=== PATIENT | female | born 1940 | race Caucasian/White ===

== ENCOUNTER → 2016-05-02 | Outpatient (CLI) | payer OTHER | LOC: BHFA 11:00 | PROVIDERS: ATTEND Internal Medicine Cardiovascular Disease | DX: R07.9 Chest pain, unspecified (principal) ==

== ENCOUNTER 2017-05-07 10:31 | Observation (INO) | payer OTHER ==
[2017-05-07 10:58] LABS: PLATELET COUNT 321 10^3/uL (150-400)
--- NOTE | 2017-05-07 11:03 | CPEKG ---
Heart Rate: 78 RR Interval: 769 P-R Interval: 192 QRSD Interval: 90 QT Interval: 396 QTC Interval: 452 P [place]: 30 QRS [place]: -48 T Wave [place]: 16 EKG Severity - ABNORMAL ECG - EKG Impression: SINUS RHYTHM EKG Impression: LEFT ANTERIOR FASCICULAR BLOCK EKG Impression: Poor anterior R-wave progression Electronically Signed By: Russel Monreal 07-May-2017 14:37:09
[2017-05-07] MEDS ORDERED: KETOROLAC 30 MG/1 ML SDV IVP ONE (11:14)
[2017-05-07] MEDS ORDERED: METOCLOPRAMIDE 10 MG/2 ML VIAL IVP ONE (11:14)
[2017-05-07] MEDS ORDERED: NS 1,000 ML IV ONE (11:14)
[2017-05-07] MEDS ORDERED: ACETAMINOPHEN 500 MG TAB PO ONE (11:54)
[2017-05-07] MEDS ORDERED: ACETAMINOPHEN 325 MG TAB PO ONE (12:02)
[2017-05-07] MEDS ORDERED: IOPAMIDOL (ISOVUE 370) 100 ML BTL IV ONE (12:29)
--- NOTE | 2017-05-07 14:15 | EDPHY ---
H & P Stated Complaint: 08 aura/ WHITE then confusion - currently has WHITE/Confusion and arm pain Time Seen by Provider: 05/07/17 10:39 HPI/ROS: This patient reports onset of bifrontal headache achy and sharp in nature 7/10 intensity at 8:00 a.m. This morning associated with "confusion." When asked to describe this specifically, her describes word-finding difficulty and garbled words. She also has moderate nausea but no vomiting. He gave her a single Advil migraine [id number] medication at 8:00 a.m. But the patient had no significant improvement in symptoms when she was brought here by private vehicle for further evaluation. They report that in mid February of last year the patient had a similar headache that felt reminiscent of migraine she had 30 years prior and was seen at [facility] with a normal CT head. At that time she also had expressive aphasia. Her symptoms improved with treatment and she was discharged home. It sounds like she had no further follow -up after that episode. Patient did notice any other associated neuro symptoms except"fuzzy vision ". The fuzzy vision persists and her word-finding difficulty persists. She did notice any focal weakness or numbness except for bilateral symmetric hand paresthesias. The patient reports that she felt well prior to 8:00 a.m. this morning. ROS: Constitutional: No fevers or chills. No generalized fatigue. Neuro: The patient describes word-finding difficulty and bilateral finger tingling this morning. She denies any focal weakness. No shukri numbness. The family noticed no facial droop. HEENT: No recent URI symptoms. No sore throat. No ear pain. Pulmonary: No cough or shortness of breath. Cardiovascular: No chest pain. No heart palpitations. GI: Nausea but no vomiting. No abdominal pain : No symptoms Integumentary: No skin rash Endocrine: No complaints Musculoskeletal: No recent head injuries or other trauma. Complete review of symptoms is otherwise negative. Source: Patient, Family (Patient's and granddaughter also provide history) Exam Limitations: Clinical condition (Patient with some word-finding difficulty in terms of history.) - Personal History Current Tetanus Diphtheria and Acellular Pertussis (TDAP): Yes - Medical/Surgical History Other PMH: Thyroid issues/ ortho - Social History Smoking Status: Never smoked Alcohol Use: None Drug Use: None - Physical Exam Exam: Physical exam: Vital signs are normal General: Patient is in no acute distress. HEENT: Is no external evidence of trauma on exam. She has no cranial tenderness to palpation. Nose atraumatic. Ears: Clear bilaterally with no hemotympanum. Oropharynx: No dental trauma or malocclusion. No intraoral lacerations. Eyes: Pupils are equal and reactive to light. Extraocular motions are intact. Optic fundi: Clear with no papilledema or hemorrhage. Neck: No meningismus. Her neck is supple. Lungs: Clear to auscultation bilaterally Cardiac: Regular rate and rhythm no murmur gallop or rub. Abdomen: Soft nontender no organomegaly Back: Nontender Extremities: Atraumatic Neuro: Stroke scale of 1 for mild expressive aphasia/word-finding difficulties. Otherwise neuro intact with no focal deficits. GCS of 15. Cranial nerves II through XII intact. Cerebellar exam is normal as judged by symmetric rapid hand movements bilaterally. No pronator drift. No sensory or motor deficits are appreciated besides the subtle expressive aphasia. Initial differential diagnosis: Migraine headache with neuro symptoms, stroke, TIA, intracranial lesion, vasculitis, doubt infectious etiology, metabolic disarray Constitutional: Initial Vital Signs Temperature (C) 36.6 C 05/07/17 10:39 Heart Rate 88 05/07/17 10:39 Respiratory Rate 20 05/07/17 10:39 Blood Pressure 150/90 H 05/07/17 10:39 O2 Sat (%) 97 05/07/17 10:39 O2 Delivery Mode Room Air O2 (L/minute) 2 Allergies/Adverse Reactions: Penicillins Allergy (Intermediate, Verified 01/31/13 22:07) Home Medications: Medication Instructions Recorded LORazepam [Ativan 0.5 mg (RX)] 0.25 mg 01/31/13 Levothyroxine [Synthroid 100 mcg 50 mcg PO DAILY06 01/31/13 (RX)] Medical Decision Making - Diagnostics EKG Interpretation: 12 lead EKG performed shortly after arrival at 11:01 a.m. Sinus rhythm at 78 Intervals: P R of 192, QRS of 90, QTC of 452 [place]: P of 30, QRS of -40, T of 16 ST segments: Normal throughout Overall assessment sinus rhythm left anterior fascicular block poor anterior R- wave progression. No prior for comparison Imaging Results: Imaging Impressions Head CT 05/07/17 10:59 Impression: 1. Mild atrophy. 2. No acute hemorrhage, hydrocephalus, or mass effect. 3. Cerebrovascular atherosclerosis. 4. No definite acute infarct. 5. Mild microvascular ischemic gliosis. 6. Consider MRI of the brain, if there is continued clinical concern. Findings and recommendations discussed with Emergency Department physician, RUSSEL ZARATE at 11:14 hour, 05/07/2017. Final report concurs with initial preliminary interpretation. Head CTA 05/07/17 12:15 Impression: 1. Mild atherosclerotic disease right carotid bulb. 2. No evidence of carotid flow-limiting stenosis, occlusion, or dissection. 3. Very small codominant bilateral vertebral arteries with a small vertebrobasilar system but no evidence of occlusion. Measurement of carotid stenosis is based on the residual internal carotid diameter with [place] Symptomatic Carotid Endarterectomy Trial (NASCET) based stenosis levels. CT Angiogram of the Brain Clinical Indications: Headache with aphasia. Question stroke or bleed. Technique: CT angiogram of the brain and neck was performed with the uneventful intravenous administration of 75 mL Isovue-370 contrast. Multiplanar reconstructions including 3D reconstructions performed and evaluated on [employer]a workstation in order to better evaluate the [place] vessels. Images were manipulated by the radiologist at the computer workstation. Dose reduction techniques were utilized. Findings: Major vessels of the [place] are adequately displayed, demonstrating no evidence of aneurysm, vascular malformation, flow-limiting stenosis, or occlusion. Bilateral cavernous internal carotid arteries demonstrates no evidence of flow-limiting stenosis, aneurysm, occlusion, or dissection. Superior sagittal sinus, transverse sinuses, and major veins demonstrate no evidence of intraluminal thrombi. Very small vertebrobasilar system with lateral posterior communicating artery origins supplying the majority of bilateral posterior cerebral arteries. No evidence of flow-limiting stenosis of the [place] vessels or definite vascular malformation. Impression: 1. No flow-limiting stenosis or intraluminal thrombi in the [place] vessels. 2. 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 Findings and recommendations discussed with Emergency Department physician, Russel Zarate, at 1300 hours, 05/07/2017. Final report concurs with initial preliminary interpretation. Neck CTA 05/07/17 12:15 Impression: 1. Mild atherosclerotic disease right carotid bulb. 2. No evidence of carotid flow-limiting stenosis, occlusion, or dissection. 3. Very small codominant bilateral vertebral arteries with a small vertebrobasilar system but no evidence of occlusion. Measurement of carotid stenosis is based on the residual internal carotid diameter with [place] Symptomatic Carotid Endarterectomy Trial (NASCET) based stenosis levels. CT Angiogram of the Brain Clinical Indications: Headache with aphasia. Question stroke or bleed. Technique: CT angiogram of the brain and neck was performed with the uneventful intravenous administration of 75 mL Isovue-370 contrast. Multiplanar reconstructions including 3D reconstructions performed and evaluated on [employer] workstation in order to better evaluate the [place] vessels. Images were manipulated by the radiologist at the computer workstation. Dose reduction techniques were utilized. Findings: Major vessels of the [place] are adequately displayed, demonstrating no evidence of aneurysm, vascular malformation, flow-limiting stenosis, or occlusion. Bilateral cavernous internal carotid arteries demonstrates no evidence of flow-limiting stenosis, aneurysm, occlusion, or dissection. Superior sagittal sinus, transverse sinuses, and major veins demonstrate no evidence of intraluminal thrombi. Very small vertebrobasilar system with lateral posterior communicating artery origins supplying the majority of bilateral posterior cerebral arteries. No evidence of flow-limiting stenosis of the [place] vessels or definite vascular malformation. Impression: 1. No flow-limiting stenosis or intraluminal thrombi in the [place] vessels. 2. 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 Findings and recommendations discussed with Emergency Department physician, Russel Zarate, at 1300 hours, 05/07/2017. Final report concurs with initial preliminary interpretation. Imaging: Discussed imaging studies w/ business services analyst Radiologist ED Course/Re-evaluation: IV, lab sent Discussed initial CT read with radiologist-negative for bleed intracranial lesion or other significant abnormalities. Patient is then treated for migraine with IV Reglan, 10 mg Benadryl 25 mg, IV Toradol and 1 L normal saline bolus. Her nausea resolved. Her headache went from 7 to 5/10. However, the patient continued to have waxing and waning mild expressive aphasia manifest as word- finding difficulty. She is given Tylenol in addition to her previous medications for ongoing headache. On repeat neuro exam after her CT she still has no other neuro deficits. I consulted Dr. Guerrier-neurology on-call who agrees with plan for CT angio head and neck which performed and also read as no significant acute abnormality but Dr. Roman. Labs: Normal CBC and metabolic panel. Normal ESR We attempted to obtain a MRI brain here at [facility] without success. Spoke with Dr. Olson in consult again regarding this patient with plan to transfer her to [facility] Emergency Department for MRI of the brain for further evaluation to rule out stroke. I queried the possibility of a dose of aspirin but Dr. Guerrier requests holding off at this time in favor of reviewing MRI 1st. I spoke with Dr. Fulton accepts the patient for transfer to the emergency department The family agrees to plan for transfer to [facility] ED though her ones that she has significant claustrophobia will likely require sedation to achieve an MRI. I suggested transfer by EMS but her declines EMS transport understanding the risk of driving her private vehicle. He accepts this risk: Dry for the patient to [facility] for further evaluation. Discussion: Patient with neuro symptoms concerning for stroke or TIA versus atypical migraine with persistent neuro symptoms warranting further workup to include MRI brain. - Data Points Laboratory Results: Laboratory Results 05/07/17 10:55 05/07/17 10:55 05/07/17 05/07/17 05/07/17 13:00 10:57 10:56 WBC RBC Hgb POC Hgb 16.0 gm/dL gm/dL (12.6-16.3) Hct POC Hct 47 % % (38-47) MCV MCH MCHC RDW Plt Count MPV Neut % (Auto) Lymph % (Auto) [place] % (Auto) Eos % (Auto) Baso % (Auto) Nucleat RBC Rel Count Absolute Neuts (auto) Absolute Lymphs (auto) Absolute Monos (auto) Absolute Eos (auto) Absolute Basos (auto) Absolute Nucleated RBC Immature Gran % Immature Gran # POC Sodium 141 mEq/L mEq/L (135-145) Sodium POC Potassium 4.2 mEq/L mEq/L (3.3-5.0) Potassium POC Chloride 109 mEq/L mEq/L (97-110) Chloride Carbon Dioxide Anion Gap POC BUN 23 mg/dL mg/dL (7-23) BUN Creatinine POC Creatinine 0.9 mg/dL mg/dL (0.6-1.0) Estimated GFR Glucose POC Glucose 106 mg/dL H mg/dL (70-100) Calcium Total Bilirubin AST ALT Alkaline Phosphatase C-Reactive Protein < 5.0 mg/L mg/L (<10.0) Total Protein Albumin TSH Urine Color YELLOW Urine Appearance HAZY Urine pH 7.0 (5.0-7.5) Ur Specific [place] 1.015 (1.002-1.030) Urine Protein NEGATIVE (NEGATIVE) Urine Ketones TRACE H (NEGATIVE) Urine Blood NEGATIVE (NEGATIVE) Urine Nitrate NEGATIVE (NEGATIVE) Urine Bilirubin NEGATIVE (NEGATIVE) Urine Urobilinogen 0.2 EU EU (0.2-1.0) Ur Leukocyte Esterase NEGATIVE (NEGATIVE) Urine Glucose NEGATIVE (NEGATIVE) 05/07/17 05/07/17 10:55 10:55 WBC 6.71 10^3/uL 10^3/uL (3.80-9.50) RBC 5.21 10^6/uL 10^6/uL (4.18-5.33) Hgb 16.2 g/dL g/dL (12.6-16.3) POC Hgb Hct 47.5 % H % (38.0-47.0) POC Hct MCV 91.2 fL fL (81.5-99.8) MCH 31.1 pg pg (27.9-34.1) MCHC 34.1 g/dL g/dL (32.4-36.7) RDW 13.2 % % (11.5-15.2) Plt Count 321 10^3/uL 10^3/uL (150-400) MPV 9.2 fL fL (8.7-11.7) Neut % (Auto) 69.0 % % (39.3-74.2) Lymph % (Auto) 20.9 % % (15.0-45.0) [place] % (Auto) 7.9 % % (4.5-13.0) Eos % (Auto) 1.2 % % (0.6-7.6) Baso % (Auto) 0.6 % % (0.3-1.7) Nucleat RBC Rel Count 0.0 % % (0.0-0.2) Absolute Neuts (auto) 4.63 10^3/uL 10^3/uL (1.70-6.50) Absolute Lymphs (auto) 1.40 10^3/uL 10^3/uL (1.00-3.00) Absolute Monos (auto) 0.53 10^3/uL 10^3/uL (0.30-0.80) Absolute Eos (auto) 0.08 10^3/uL 10^3/uL (0.03-0.40) Absolute Basos (auto) 0.04 10^3/uL 10^3/uL (0.02-0.10) Absolute Nucleated RBC 0.00 10^3/uL 10^3/uL (0-0.01) Immature Gran % 0.4 % % (0.0-1.1) Immature Gran # 0.03 10^3/uL 10^3/uL (0.00-0.10) POC Sodium Sodium 143 mEq/L mEq/L (135-145) POC Potassium Potassium 4.0 mEq/L mEq/L (3.5-5.2) POC Chloride Chloride 104 mEq/L mEq/L (97-110) Carbon Dioxide 21 mEq/l L mEq/l (22-31) Anion Gap 18 mEq/L H mEq/L (8-16) POC BUN BUN 19 mg/dL mg/dL (7-23) Creatinine 0.9 mg/dL mg/dL (0.6-1.0) POC Creatinine Estimated GFR > 60 Glucose 102 mg/dL H mg/dL (70-100) POC Glucose Calcium 10.2 mg/dL mg/dL (8.5-10.4) Total Bilirubin 1.0 mg/dL mg/dL (0.1-1.4) AST 24 IU/L IU/L (14-46) ALT 40 IU/L IU/L (9-52) Alkaline Phosphatase 92 IU/L IU/L (38-126) C-Reactive Protein Total Protein 8.5 g/dL H g/dL (6.3-8.2) Albumin 4.4 g/dL g/dL (3.5-5.0) TSH 0.860 uIU/mL uIU/mL (0.465-4.680) Urine Color Urine Appearance Urine pH Ur Specific [place] Urine Protein Urine Ketones Urine Blood Urine Nitrate Urine Bilirubin Urine Urobilinogen Ur Leukocyte Esterase Urine Glucose Medications Given: Discontinued Medications Acetaminophen (Tylenol) 1,000 mg PO EDNOW ONE Stop: 05/07/17 11:55 Last Admin: 05/07/17 12:02 Dose: Not Given Acetaminophen (Tylenol) 975 mg PO EDNOW ONE Stop: 05/07/17 12:03 Last Admin: 05/07/17 12:10 Dose: 975 mg Diphenhydramine HCl (Benadryl Injection) 25 mg IVP EDNOW ONE Stop: 05/07/17 11:15 Last Admin: 05/07/17 11:32 Dose: 25 mg Sodium Chloride (Ns) 1,000 mls @ 0 mls/hr IV ONCE ONE; Wide Open PRN Reason: Protocol Stop: 05/07/17 11:15 Last Admin: 05/07/17 11:31 Dose: 1,000 mls Ketorolac Tromethamine (Toradol) 15 mg IVP EDNOW ONE Stop: 05/07/17 11:15 Last Admin: 05/07/17 11:32 Dose: 15 mg Metoclopramide HCl (Reglan Injection) 10 mg IVP EDNOW ONE Stop: 05/07/17 11:15 Last Admin: 05/07/17 11:32 Dose: 10 mg Point of Care Test Results: 05/07/17 10:56 POC Sodium 141 POC Potassium 4.2 POC Chloride 109 POC BUN 23 POC Creatinine 0.9 POC Glucose 106 H Departure - Departure Disposition: [facility] Clinical Impression: Expressive aphasia Acute headache Qualifiers: Headache type: unspecified Intractability: intractable Qualified Code(s): R51 - Headache Condition: Fair
--- NOTE | 2017-05-07 15:33 | EDPHY ---
H & P Stated Complaint: 08 aura/ WHITE then confusion - currently has WHITE/Confusion and arm pain Time Seen by Provider: 05/07/17 10:39 HPI/ROS: CHIEF COMPLAINT: Headache, aphasia HISTORY OF PRESENT ILLNESS: Patient is a 76-year-old female who has a history of migraines as a teenager but did not have 1 for many decades. She then in February had what she described as a migraine that caused a headache and some flashes of lights which is typical for her previous aura as well as some mild aphasia. She was seen at [facility] and discharged after 5 hr or headache resolved. She was told that she was having a typical migraines. Today her symptoms returned and she developed some flashing lights in her vision and then a diffuse headache and some aphasia according to her and occasionally garbled sentences. She was taken to the [facility] ER and had a CT as well as CT angio of her head and neck that were negative. She was given Reglan Benadryl Tylenol with moderate improvement of her headache. She has not had a fever. She denies trauma. They consulted Neurology who recommended she come here for an MRI to evaluate for atypical migraine. Her symptoms began at 8 o'clock this morning. She did initially have some tingling in both hands that has now resolved. No weakness in her extremities. REVIEW OF SYSTEMS: Constitutional: denies: chills, fever, recent illness, recent injury EENTM: denies: blurred vision, double vision, nose congestion Respiratory: denies: cough, shortness of breath Cardiac: denies: chest pain, irregular heart rate, lightheadedness, palpitations Gastrointestinal/Abdominal: denies: abdominal pain, diarrhea, nausea, vomiting, blood streaked stools Genitourinary: denies: dysuria, frequency, hematuria, pain Musculoskeletal: denies: joint pain, muscle pain Skin: denies: lesions, rash, jaundice, bruising Neurological: See HPI Hematologic/Lymphatic: denies: blood clots, easy bleeding, easy bruising Immunologic/allergic: denies: HIV/AIDS, transplant EXAM: GENERAL: Well-appearing, well-nourished and in no acute distress. HEAD: Atraumatic, normocephalic. EYES: Pupils equal round and reactive to light, extraocular movements intact, sclera anicteric, conjunctiva are normal. ENT: TMs normal, nares patent, oropharynx clear without exudates. Moist mucous membranes. NECK: Normal range of motion, supple without lymphadenopathy or JVD. LUNGS: Breath sounds clear to auscultation bilaterally and equal. No wheezes rales or rhonchi. HEART: Regular rate and rhythm without murmurs, rubs or gallops. ABDOMEN: Soft, nontender, normoactive bowel sounds. No guarding, no rebound. No masses appreciated. BACK: No CVA tenderness, no spinal tenderness, step-offs or deformities EXTREMITIES: Normal range of motion, no pitting or edema. No clubbing or cyanosis. NEUROLOGICAL: Cranial nerves II through XII grossly intact. Some mild difficulty with word-finding however seems to speak rather normally according to her it is not her baseline., normal gait. 5/5 strength, normal movement in all extremities, normal sensation NIH stroke score 1 for mild aphasia. No slurred speech. PSYCH: Normal mood, normal affect. SKIN: Warm, dry, normal turgor, no visible rashes or lesions. Source: Patient Exam Limitations: No limitations - Personal History Current Tetanus Diphtheria and Acellular Pertussis (TDAP): Yes - Medical/Surgical History Hx Asthma: No Hx Chronic Respiratory Disease: No Hx Diabetes: No Hx Cardiac Disease: No Hx Renal Disease: No Hx Cirrhosis: No Other PMH: Thyroid issues/ ortho - Family History Significant Family History: No pertinent family hx - Social History Smoking Status: Never smoked Alcohol Use: Sober Drug Use: None Constitutional: Initial Vital Signs Temperature (C) 36.6 C 05/07/17 10:39 Heart Rate 88 05/07/17 10:39 Respiratory Rate 20 05/07/17 10:39 Blood Pressure 150/90 H 05/07/17 10:39 O2 Sat (%) 97 05/07/17 10:39 O2 Delivery Mode Room Air O2 (L/minute) 2 Allergies/Adverse Reactions: Penicillins Allergy (Intermediate, Verified 01/31/13 22:07) Home Medications: Medication Instructions Recorded Levothyroxine [Synthroid 100 mcg 100 mcg PO DAILY06 01/31/13 (RX)] Herbals/Supplements -Info Only 1 ea PO DAILY 05/07/17 Medical Decision Making - Diagnostics Imaging Results: Imaging Impressions Head CT 05/07/17 10:59 Impression: 1. Mild atrophy. 2. No acute hemorrhage, hydrocephalus, or mass effect. 3. Cerebrovascular atherosclerosis. 4. No definite acute infarct. 5. Mild microvascular ischemic gliosis. 6. Consider MRI of the brain, if there is continued clinical concern. Findings and recommendations discussed with Emergency Department physician, ANDREW ZARATE at 11:14 hour, 05/07/2017. Final report concurs with initial preliminary interpretation. Head CTA 05/07/17 12:15 Impression: 1. Mild atherosclerotic disease right carotid bulb. 2. No evidence of carotid flow-limiting stenosis, occlusion, or dissection. 3. Very small codominant bilateral vertebral arteries with a small vertebrobasilar system but no evidence of occlusion. Measurement of carotid stenosis is based on the residual internal carotid diameter with [place] Symptomatic Carotid Endarterectomy Trial (NASCET) based stenosis levels. CT Angiogram of the Brain Clinical Indications: Headache with aphasia. Question stroke or bleed. Technique: CT angiogram of the brain and neck was performed with the uneventful intravenous administration of 75 mL Isovue-370 contrast. Multiplanar reconstructions including 3D reconstructions performed and evaluated on [employer] workstation in order to better evaluate the [facility] [place] vessels. Images were manipulated by the radiologist at the computer workstation. Dose reduction techniques were utilized. Findings: Major vessels of the [facility] [place] are adequately displayed, demonstrating no evidence of aneurysm, vascular malformation, flow-limiting stenosis, or occlusion. Bilateral cavernous internal carotid arteries demonstrates no evidence of flow-limiting stenosis, aneurysm, occlusion, or dissection. Superior sagittal sinus, transverse sinuses, and major veins demonstrate no evidence of intraluminal thrombi. Very small vertebrobasilar system with lateral posterior communicating artery origins supplying the majority of bilateral posterior cerebral arteries. No evidence of flow-limiting stenosis of the [facility] [place] vessels or definite vascular malformation. Impression: 1. No flow-limiting stenosis or intraluminal thrombi in the [facility] [place] vessels. 2. 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 Findings and recommendations discussed with Emergency Department physician, Andrew Zarate, at 1300 hours, 05/07/2017. Final report concurs with initial preliminary interpretation. Neck CTA 05/07/17 12:15 Impression: 1. Mild atherosclerotic disease right carotid bulb. 2. No evidence of carotid flow-limiting stenosis, occlusion, or dissection. 3. Very small codominant bilateral vertebral arteries with a small vertebrobasilar system but no evidence of occlusion. Measurement of carotid stenosis is based on the residual internal carotid diameter with [place] Symptomatic Carotid Endarterectomy Trial (NASCET) based stenosis levels. CT Angiogram of the Brain Clinical Indications: Headache with aphasia. Question stroke or bleed. Technique: CT angiogram of the brain and neck was performed with the uneventful intravenous administration of 75 mL Isovue-370 contrast. Multiplanar reconstructions including 3D reconstructions performed and evaluated on [employer] workstation in order to better evaluate the [facility] [place] vessels. Images were manipulated by the radiologist at the computer workstation. Dose reduction techniques were utilized. Findings: Major vessels of the [facility] [place] [place] are adequately displayed, demonstrating no evidence of aneurysm, vascular malformation, flow-limiting stenosis, or occlusion. Bilateral cavernous internal carotid arteries demonstrates no evidence of flow-limiting stenosis, aneurysm, occlusion, or dissection. Superior sagittal sinus, transverse sinuses, and major veins demonstrate no evidence of intraluminal thrombi. Very small vertebrobasilar system with lateral posterior communicating artery origins supplying the majority of bilateral posterior cerebral arteries. No evidence of flow-limiting stenosis of the [facility] [place] vessels or definite vascular malformation. Impression: 1. No flow-limiting stenosis or intraluminal thrombi in the [facility] [place] [facility] [place] vessels. 2. 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 Findings and recommendations discussed with Emergency Department physician, Anrdew Zarate, at 1300 hours, 05/07/2017. Final report concurs with initial preliminary interpretation. Imaging: Discussed imaging studies w/ scallop cutter Radiologist ED Course/Re-evaluation: Discussed the case with Dr. Kee who will admit to the medical service for rule out CVA. Differential Diagnosis: Partial list of the Differential diagnosis considered include but were not limited to; CVA, migraine, and although unlikely based on the history and physical exam, I also considered aneurysm, hemorrhage, infection. - Data Points Laboratory Results: Laboratory Results 05/07/17 10:55 05/07/17 10:55 05/07/17 05/07/17 05/07/17 13:00 10:57 10:56 WBC RBC Hgb POC Hgb 16.0 gm/dL gm/dL (12.6-16.3) Hct POC Hct 47 % % (38-47) MCV MCH MCHC RDW Plt Count MPV Neut % (Auto) Lymph % (Auto) Howell % (Auto) Eos % (Auto) Baso % (Auto) Nucleat RBC Rel Count Absolute Neuts (auto) Absolute Lymphs (auto) Absolute Monos (auto) Absolute Eos (auto) Absolute Basos (auto) Absolute Nucleated RBC Immature Gran % Immature Gran # POC Sodium 141 mEq/L mEq/L (135-145) Sodium POC Potassium 4.2 mEq/L mEq/L (3.3-5.0) Potassium POC Chloride 109 mEq/L mEq/L (97-110) Chloride Carbon Dioxide Anion Gap POC BUN 23 mg/dL mg/dL (7-23) BUN Creatinine POC Creatinine 0.9 mg/dL mg/dL (0.6-1.0) Estimated GFR Glucose POC Glucose 106 mg/dL H mg/dL (70-100) Calcium Total Bilirubin AST ALT Alkaline Phosphatase C-Reactive Protein < 5.0 mg/L mg/L (<10.0) Total Protein Albumin TSH Urine Color YELLOW Urine Appearance HAZY Urine pH 7.0 (5.0-7.5) Ur Specific [place] 1.015 (1.002-1.030) Urine Protein NEGATIVE (NEGATIVE) Urine Ketones TRACE H (NEGATIVE) Urine Blood NEGATIVE (NEGATIVE) Urine Nitrate NEGATIVE (NEGATIVE) Urine Bilirubin NEGATIVE (NEGATIVE) Urine Urobilinogen 0.2 EU EU (0.2-1.0) Ur Leukocyte Esterase NEGATIVE (NEGATIVE) Urine Glucose NEGATIVE (NEGATIVE) 05/07/17 05/07/17 10:55 10:55 WBC 6.71 10^3/uL 10^3/uL (3.80-9.50) RBC 5.21 10^6/uL 10^6/uL (4.18-5.33) Hgb 16.2 g/dL g/dL (12.6-16.3) POC Hgb Hct 47.5 % H % (38.0-47.0) POC Hct MCV 91.2 fL fL (81.5-99.8) MCH 31.1 pg pg (27.9-34.1) MCHC 34.1 g/dL g/dL (32.4-36.7) RDW 13.2 % % (11.5-15.2) Plt Count 321 10^3/uL 10^3/uL (150-400) MPV 9.2 fL fL (8.7-11.7) Neut % (Auto) 69.0 % % (39.3-74.2) Lymph % (Auto) 20.9 % % (15.0-45.0) Howell % (Auto) 7.9 % % (4.5-13.0) Eos % (Auto) 1.2 % % (0.6-7.6) Baso % (Auto) 0.6 % % (0.3-1.7) Nucleat RBC Rel Count 0.0 % % (0.0-0.2) Absolute Neuts (auto) 4.63 10^3/uL 10^3/uL (1.70-6.50) Absolute Lymphs (auto) 1.40 10^3/uL 10^3/uL (1.00-3.00) Absolute Monos (auto) 0.53 10^3/uL 10^3/uL (0.30-0.80) Absolute Eos (auto) 0.08 10^3/uL 10^3/uL (0.03-0.40) Absolute Basos (auto) 0.04 10^3/uL 10^3/uL (0.02-0.10) Absolute Nucleated RBC 0.00 10^3/uL 10^3/uL (0-0.01) Immature Gran % 0.4 % % (0.0-1.1) Immature Gran # 0.03 10^3/uL 10^3/uL (0.00-0.10) POC Sodium Sodium 143 mEq/L mEq/L (135-145) POC Potassium Potassium 4.0 mEq/L mEq/L (3.5-5.2) POC Chloride Chloride 104 mEq/L mEq/L (97-110) Carbon Dioxide 21 mEq/l L mEq/l (22-31) Anion Gap 18 mEq/L H mEq/L (8-16) POC BUN BUN 19 mg/dL mg/dL (7-23) Creatinine 0.9 mg/dL mg/dL (0.6-1.0) POC Creatinine Estimated GFR > 60 Glucose 102 mg/dL H mg/dL (70-100) POC Glucose Calcium 10.2 mg/dL mg/dL (8.5-10.4) Total Bilirubin 1.0 mg/dL mg/dL (0.1-1.4) AST 24 IU/L IU/L (14-46) ALT 40 IU/L IU/L (9-52) Alkaline Phosphatase 92 IU/L IU/L (38-126) C-Reactive Protein Total Protein 8.5 g/dL H g/dL (6.3-8.2) Albumin 4.4 g/dL g/dL (3.5-5.0) TSH 0.860 uIU/mL uIU/mL (0.465-4.680) Urine Color Urine Appearance Urine pH Ur Specific [place] Urine Protein Urine Ketones Urine Blood Urine Nitrate Urine Bilirubin Urine Urobilinogen Ur Leukocyte Esterase Urine Glucose Medications Given: Acetaminophen (Tylenol) 650 mg PO Q4HRS PRN PRN Reason: Pain, Mild/Fever, Can Take PO Stop: 11/03/17 16:39 Last Admin: 05/07/17 21:01 Dose: 325 mg Discontinued Medications Acetaminophen (Tylenol) 1,000 mg PO EDNOW ONE Stop: 05/07/17 11:55 Last Admin: 05/07/17 12:02 Dose: Not Given Acetaminophen (Tylenol) 975 mg PO EDNOW ONE Stop: 05/07/17 12:03 Last Admin: 05/07/17 12:10 Dose: 975 mg Diphenhydramine HCl (Benadryl Injection) 25 mg IVP EDNOW ONE Stop: 05/07/17 11:15 Last Admin: 05/07/17 11:32 Dose: 25 mg Sodium Chloride (Ns) 1,000 mls @ 0 mls/hr IV ONCE ONE; Wide Open PRN Reason: Protocol Stop: 05/07/17 11:15 Last Admin: 05/07/17 11:31 Dose: 1,000 mls Ketorolac Tromethamine (Toradol) 15 mg IVP EDNOW ONE Stop: 05/07/17 11:15 Last Admin: 05/07/17 11:32 Dose: 15 mg Lorazepam (Ativan Injection) 1 mg IVP EDNOW ONE Stop: 05/07/17 15:35 Last Admin: 05/07/17 16:57 Dose: 1 mg Metoclopramide HCl (Reglan Injection) 10 mg IVP EDNOW ONE Stop: 05/07/17 11:15 Last Admin: 05/07/17 11:32 Dose: 10 mg Point of Care Test Results: 05/07/17 10:56 POC Sodium 141 POC Potassium 4.2 POC Chloride 109 POC BUN 23 POC Creatinine 0.9 POC Glucose 106 H Departure - Departure Disposition: [facility] Inpatient Acute Clinical Impression: Expressive aphasia Acute headache Qualifiers: Headache type: unspecified Intractability: intractable Qualified Code(s): R51 - Headache Condition: Fair
[2017-05-07] MEDS ORDERED: LORazepam 2 MG/ML INJ IVP ONE (15:34)
[2017-05-07] MEDS ORDERED: OXYCODONE/APAP 5/325 TAB PO PRN (16:40)
[2017-05-07] MEDS ORDERED: PROMETHAZINE HCL 25 MG/ML INJ IVP PRN (16:40)
[2017-05-07] MEDS ORDERED: ACETAMINOPHEN 325 MG TAB PO PRN (16:40)
[2017-05-07] MEDS ORDERED: NS 1,000 ML IV SCH (16:45)
[2017-05-07] MEDS ORDERED: ACET/CAFFEINE/BUTA FIORICET 1 EACH TAB PO PRN (17:32)
--- NOTE | 2017-05-07 18:11 | GHP ---
[f rep st] HISTORY AND PHYSICAL DATE OF ADMISSION: 05/07/2017 CHIEF COMPLAINT: Headache with bilateral arm numbness and speech changes. HISTORY OF PRESENT ILLNESS: The patient is a pleasant 76-year-old female with a past medical history of migraine headaches dating back to her teenage years, but relatively mild in her adult life. She presented to [facility] this morning after developing a headache. She states that she woke up with aura-like symptoms with lights in her field of vision, which she has had before with gabby or migraine headaches. She also woke with bilateral hand and arm numbness. Her also adds th at her speech was garbled, saying she was able to produce speech, but the words in making a sentence were not in the correct order. He did not notice any facial asymmetry or weakness of her extremities . Her last known normal time would have been the evening prior before going to bed. She had a CT scan of her head, which showed mild atrophy but no hemorrhage, hydrocephalus or mass eff ect. There was no definite acute infarct seen. She also had a CTA of the head and the neck. The CT A of the head showed mild atherosclerotic disease at the right carotid bulb, but no flow-limiting molina nosis, occlusion or dissection. She was referred then to the [facility] for additional investigation and to perform an MRI, which has been ordered and she is getting at t he time of this dictation. PAST MEDICAL HISTORY: Hypothyroidism. PAST SURGICAL HISTORY: 1. Bilateral knee replacements. 2. Hysterectomy. MEDICATIONS: Levothyroxine 100 mcg daily. ALLERGIES: Penicillin. FAMILY HISTORY: Mother at advanced age from complications from pneumonia. Her father from a stroke, which sounds like it was a complication after hip replacement surgery, also at an adva nced age in his late 80s. SOCIAL HISTORY: The patient is nonsmoker. She does not drink alcohol. She does not do any illicit or illegal drugs. She is currently . She has 2 children. She has recently retired. She use d to work at a [employer]. Her power of district attorney would be her . CODE STATUS: Reviewed, and she is a full code status. REVIEW OF SYSTEMS: CONSTITUTIONAL: No complaints of any fevers or chills. ENT: No recent upper re spiratory illnesses. CARDIOVASCULAR: No complaints of any chest pains, palpitations, or syncopal ep isodes. RESPIRATORY: No complaints of shortness of breath or productive cough. GI: No nausea, no a bdominal pains, diarrhea, or bloody stools. : No report of any difficulty with urination. NEUROL OGIC: Positive for headache, which is unilateral on the left side of her face. Scotomas also presen t, and bilateral arm and hand numbness. HEMATOLOGIC: No history of any deep vein thrombosis or pulm onary embolism. PSYCHIATRIC: No history of anxiety or depression. ENDOCRINE: Positive for hypothyr oidism. SKIN: No new skin rashes. MUSCULOSKELETAL: No focal joint pains. PHYSICAL EXAM: VITAL SIGNS: Temperature 36.4, blood pressure 139/63, heart rate 73, respirations 17 , satting 95% on room air. APPEARANCE/GENERAL: She appears comfortable. She is able to answer ques tions but does get some assistance from her . HEENT: Extraocular movements are intact. Pupi ls are equal and reactive to light. Pupils are approximately 4 to 5 mm. NECK: Supple. No adenopat hies appreciated. No thyroid enlargement noted. No carotid bruit appreciated. CHEST: Clear on aus cultation. Normal respiratory effort. HEART: Regular rate and rhythm. No murmurs are noted. ABDO MEN: Soft, nontender, nondistended. : No Preston catheter in place. EXTREMITIES: No significant p itting edema. NEUROLOGIC: Cranial nerves 2-12 appear intact. Strength 5/5 in all extremities. Diff icult to elicit patellar reflexes. LABS: White blood cell count is 6, hemoglobin 16, platelets 321. Sodium is 143, potassium 4.0, chloride 104, bicarb 21, BUN is 19, creatinine 0.9, glucose of 102, AST 24, ALT 40, alk phos 40, bilirubin 1.0, total protein is 8.5. TSH 0.86. CRP less than 5.0. Sedime ntation rate is 8. Urinalysis shows trace ketones. IMAGING: As detailed in the HPI. ASSESSMENT AND PLAN: 1. Headache. Her headache is unilateral on the left side of her head around the left eye, with asso ciated visual auras. She does have bilateral subjective numbness of her hands and arms, and speech c hanges today. Her did not notice any facial asymmetry or extremity weakness, but in the prim lauren differential at this point time is complicated migraine versus stroke. MRI is currently pending. We will hold off on any further stroke workup until this MRI has been resulted. Otherwise, physica l therapy, occupational therapy, and speech consults have been placed. Will treat migraine headache for now with as-needed Fioricet. I also have Percocet and morphine in place as well. 2. Elevated total protein. She may be somewhat hypovolemic. I will administer intravenous fluids o vernight. Will check an SPEP and repeat protein level as well in the morning. 3. Hypothyroidism. Continue current dosing of levothyroxine. 4. Deep venous thrombosis prophylaxis. Lovenox. DISPOSITION: I will admit her under inpatient status pending further workup. /[id number]/MODL
[2017-05-08 05:18] LABS: PLATELET COUNT 294 10^3/uL (150-400)
[2017-05-08] MEDS ORDERED: LEVOTHYROXINE 100 MCG TAB PO SCH (06:00)
[2017-05-08 07:12] VITALS: BP 124/62; PULSE 83; RESP 17; TEMP 98.2; O2SAT 96
[2017-05-08] MEDS ORDERED: ENOXAPARIN 40 MG/0.4 ML SYR SC SCH (09:00)
--- NOTE | 2017-05-08 09:50 | NEUROPROG ---
Assessment: HOSPITAL NEUROLOGY CONSULT REQUESTING: Jose Kee MD REASON: migraine HPI: 76 year old right-handed woman with a remote history of migraine with aura presented to our ED yesterday with an episode concerning for migraine. Patient had codie-pubertal migraines with aura (scintillating scotoma) that hadn' t recurred into adulthood. However, in February 2017 she had an episode of about 30 minutes of scintillating scotoma in both eyes followed by throbbing WHITE with photophobia and some expressive language difficulty. She was evaluated at [facility] and discharged after a negative vascular workup and told she had complex migraines. She notes yesterday she had another stereotyped episode of the same semiology. She went to [facility] ED where CT head wo was unremarkable and CTA head/neck showed nothing of hemodynamic significance. She was transferred to our main ED and admitted for MRI. She did receive medication in the form of IV toradol, diphenhydramine and metoclopramide, and IVF, which seemed to improve her headache. She was still having some aphasia and had an MRI brain wo while symptomatic which was negative for any acute process. This morning her symptoms have completely resolved after a night of sleep. ROS: As per the HPI, otherwise a complete 12 point ROS was performed and is negative ALLERGIES AND MEDS: As recorded in the EMR - reviewed and reconciled PFSH: As per the intake H&P by Dr. Kee from yesterday EXAM: VS reviewed in EMR GEN: WDWN sitting in NAD HEENT: NCAT, sclera anicteric, conjunctiva not injected, MMM, oropharynx clear, no scalp tenderness NECK: supple, nontender, no meningismus CV: RRR s1 s2 wo m/r/c/g. Carotid pulses 2+ wo bruit NEURO: MS: awake, alert, oriented to all spheres. Speech nondysarthric. No language disturbance. Follows commands. Attends to both sides. Recent/remote memory grossly intact. Mood euthymic. Good fund of knowledge. CN: pupils 3mm round and reactive. Fundi with sharp discs. VFF. Primary gaze centered. Full ocular motility. Facial sensation preserved. Face symmetric. Hearing grossly intact to finger rub. Palatoglossal movements intact. Shoulder shrug and head turn strong. MOTOR: normal bulk/tone. No adventitial movements. Full power throughout. SENSORY: intact to all modalities throughout. No extinction. COORD: no ataxia FN/HS. Jia preserved. REFLEX: plantars down. No clonus. DTRS absent. GAIT: deferred to PT safety eval DATA REVIEW: Labs reviewed in EMR PERSONALLY INTERPRETED RESULTS AND DATA: CTA head/neck - insignificant right carotid bulb atherosclerosis, otherwise normal vessels MRI brain wo - global volume loss, a few scattered T2 FLAIR hyperintensities in the white matter likely reflective of chronic microvascular ischemic change, nothing acute. IMPRESSION AND RECOMMENDATIONS: // MGIRAINE WITH PROLONGED AURA Patient with a recurrent and stereotyped episode of scintillating scotoma, hemicranial throbbing WHITE with photophobia and language dysfunction with another negative vascular workup. Semiology of her event is compelling for a migraine with prolonged aura, and further supported by negative vascular workup while symptomatic. We reviewed trialing OTC interventions at the first sign of headache (ie aura). I recommended a trial of OTC Excedrin. Advise against the use of narcotic/ barbiturate medications for primary headache disorder, even in the inpatient setting. She was counseled on staying well hydrated, not skipping meals, staying active, getting restorative sleep and managing stress. I also advised establishing with our outpatient neurology group so she has a point of contact and securities counselor should another episode occur or should a new type of symptom emerge. She can be discharged from a neurologic perspective. Objective: Vital Signs Temp Pulse Resp BP Pulse Ox 36.8 C 83 17 124/62 H 96 05/08/17 07:12 05/08/17 07:12 05/08/17 07:12 05/08/17 07:12 05/08/17 07:12 Laboratory Results 05/08/17 04:40 05/08/17 04:40 05/07/17 05/08/17 05/09/17 05:59 05:59 05:59 Intake Total 1350 Output Total 1200 Balance 150 Allergies/Adverse Reactions: Penicillins Allergy (Intermediate, Verified 01/31/13 22:07)
--- NOTE | 2017-05-08 10:06 | ASMTCMCOM ---
CM Note CM Note Notes: Reviewed chart and discussed w/RN. Pt's symptoms resolved this AM, no defecits per RN. Pt will dc home w/ w/ no CM needs. Date Signed: 05/08/2017 10:06 AM Electronically Signed By:Patricia Leiva RN
--- NOTE | 2017-05-08 11:03 | PDDCSUM ---
Discharge Summary Discharge Summary: DISCHARGE DIAGNOSES: -Acute Recurrent Migraine with classic aura and throbbing retroorbital WHITE, but with Acute numbness and speech symptoms -suspect dehydration with elevated hemoglobin and protein levels, repeat both resolved with hydration CONSULTANTS: Dr. Claus Guerrier neurology PROCEDURES: CT scan of head without any acute abnormalities CT angio of neck and head without any significant stenoses MRI of brain with nothing acute, no evidence of stroke or ischemia HOSPITAL COURSE SUMMARY: This patient, who had frequent migraines as a teenager, has over the past year started having for migraines again that have been more frequent and more severe over the last few months. At this time she comes in having awakened with typical migraine visual aura followed by typical unilateral retro-orbital throbbing headache. This episode however was different in that she started to have some sense of numbness in both hands as well as difficulty correctly forming sentences from her words. The symptoms resolved spontaneously. They had been present for an extended time by the time she arrived here however. MRI of the brain showed no evidence of ischemia or other acute abnormalities and CT as well as CT angiograms were unrevealing for any concerning features. The patient's symptoms have now completely resolved. The patient is felt have migraine with acute neurologic sequelae. As such is not currently recommended for her to use Triptan medications for her migraines. She has received recommendations for sleep diet hydration and other lifestyle issues for preventive measures. She uses minimal caffeine. It is recommended that she could consider using Excedrin migraine to try and treat these episodes. The patient and had many questions about what to do when she has stroke-like symptoms in the future. Is explain to them that if she has classic migraine features she may in the future have stroke-like symptoms again. Is explain to them that at any point if they are concerned that there is a stroke, and certainly any time she has stroke-like symptoms without any migraine symptoms, they should call 911 to be taken to in the ER promptly. The association of stroke like symptoms with migraine was reviewed with them again and they do understand she may potentially have further stroke-like episodes that are actually migraine and should recover well. PENDING TEST RESULTS: Protein electrophoresis MEDICATION CHANGES: Consider use of Excedrin migraine for acute treatment of migraines At the moment use of Triptan medications for migraine discouraged due to her associated neurologic symptoms; further follow-up with Neurology recommended FOLLOW-UP PLAN: She will call to make an appointment at [facility] Have also recommended she see her primary care physician within 2-4 weeks Greater than 35 minutes bedside and care coordination time today
== END 2017-05-08 12:16 | disposition home or self-care (01) ==
LOC: CED 10:31 → INTOOBSV 13:49 → CEDHOLD 13:49 → F3N 15:55
PROVIDERS: ADMIT Internal Medicine; ATTEND Internal Medicine
DX: G43.101 Migraine with aura, not intractable, with status migrainosus (principal); E86.0 Dehydration; R20.0 Anesthesia of skin; R47.01 Aphasia; I67.2 Cerebral atherosclerosis; E03.9 Hypothyroidism, unspecified; Z88.0 Allergy status to penicillin
CPT/HCPCS: 70450; 70496; 70498; 70551; 92523; 93005; 96361; 96374; 96375; 97116; 97161; 97165; 99285; G8978; G8979; G8980; G8987; G8988; G8989; G9162; G9163; G9164; J1200; J1885; J2060; J2765; Q9967; 80053-PO; 81003-PO; 82947-QW; 84443-PO; 85025-PO; 85652-PO; J1650

== ENCOUNTER 2018-03-17 12:06 | Emergency (ER) | payer OTHER ==
[2018-03-17] MEDS ORDERED: NS 500 ML IV ONE (12:36)
--- NOTE | 2018-03-17 12:42 | EDPHY ---
H & P Stated Complaint: LLQ abd pain started 3am, denies n/v/d or fevers Time Seen by Provider: 03/17/18 12:18 HPI/ROS: This patient complains of onset of left lower quadrant pain at 3:00 a.m. That wakened her from sleep. She describes this pain as sharp in nature with no clear exacerbating factors. She has associated anorexia. Her last meal was 6: 00 p.m. Last night. She had part of a banana this morning. She reports 2 small bowel movements this morning of normal consistency. The pain is described as sharp in nature 6/10 intensity. She explains that while the location is similar, the nature of the pain is more intense and 2 previous episodes of diverticulitis. She denies any other associated symptoms. Her brought her in by private vehicle for evaluation. ROS: Constitutional: No high fevers or chills. No significant fatigue HEENT:No complaints pulmonary: No shortness of breath or other complaints cardiovascular: No lightheadedness Or lower extremity swelling GI: No significant abdominal distension. No nausea or vomiting. No bloody stools or dark tarry stools : She reports chronic frequency but no dysuria. She also has chronic urinary incontinence with unchanged. No flank pain. Integumentary: No skin rash 10 point review of symptoms is performed and otherwise negative with exception of pertinent positives and negatives listed in HPI and ROS Source: Patient Exam Limitations: No limitations - Medical/Surgical History PMH: Prior diverticulitis-most recent episode in December Hypothyroidism Ovarian lesion-details unknown Hx Asthma: No Hx Chronic Respiratory Disease: No Hx Diabetes: No Hx Cardiac Disease: No Hx Renal Disease: No Hx Cirrhosis: No Hx Alcoholism: No Hx HIV/AIDS: No Hx Splenectomy or Spleen Trauma: No Other PMH: hypothyroid, migraines, ortho surg, hysterectomy - Family History Significant Family History: No pertinent family hx - Social History Smoking Status: Never smoked Alcohol Use: None Drug Use: None - Physical Exam Exam: General Appearance: Alert, no distress. Eyes: Pupils equal and round no pallor or injection. ENT, Mouth: Mucous membranes moist. Respiratory: There are no retractions, lungs are clear to auscultation. Cardiovascular: Regular rate and rhythm. Gastrointestinal: Normoactive, soft, moderate left lower quadrant tenderness with no guarding or rebound. Neurological: GCS 15 Skin: Warm and dry, no rashes. Musculoskeletal: Neck is supple nontender. Extremities are symmetrical, full range of motion. Psychiatric: Mood and affect are normal DIFFERENTIAL DIAGNOSIS: After history and physical exam differential diagnosis was considered for diverticulitis, ureteral stone, UTI, constipation, mesenteric adenitis, ovarian tumor, early bowel obstruction Constitutional: Initial Vital Signs Temperature (C) 36.5 C 03/17/18 12:16 Heart Rate 97 03/17/18 12:16 Respiratory Rate 18 03/17/18 12:16 Blood Pressure 155/84 H 03/17/18 12:16 O2 Sat (%) 95 03/17/18 12:16 O2 Delivery Mode Room Air Allergies/Adverse Reactions: Penicillins Allergy (Intermediate, Verified 03/17/18 12:15) Home Medications: Medication Instructions Recorded Levothyroxine [Synthroid 100 mcg 100 mcg PO DAILY06 01/31/13 (*)] Herbals/Supplements -Info Only 1 ea PO DAILY 05/07/17 Acetaminophen [Tylenol 325mg (*)] 650 mg PO Q4HRS PRN tab 05/08/17 Moxifloxacin [Avelox 400 mg (*)] 400 mg PO DAILY #10 tab 03/17/18 Nortriptyline HCl 03/17/18 Medical Decision Making ED Course/Re-evaluation: Patient presented the disc copy of the CT performed as an outpatient 3 months prior to arrival for abdomen pelvis. Will order this into our system and also received a fax of the radiologist reading of this-a 2 cm left adnexal calcified lesion question teratoma or leiomyoma with recommendation of [address] scanning. No other remarkable findings except diverticulum. IV is placed. Patient treated with Toradol with some relief of her pain Review of labs reveals mild leukocytosis with a white count of her 11,000 with a left shift. POC Urinalysis is essentially normal. Basic metabolic panel normal Discussion: L LQ Pain, change in stool consistency as the, left lower quadrant tenderness and leukocytosis and prior history of diverticulitis with pain similar area appoint toward clinical diagnosis of acute diverticulitis. Clinically she does not have concerning findings for diverticular abscess or perforation at this point-no rebound tenderness. We ruled out UTI with a normal UA. Given the appearance of the small left adnexal lesion do not think a 3 month interval review significant change in this to cause current symptoms and counseled regarding this. Will plan to treat her empirically with moxifloxacin given her intolerance of Cipro and Flagyl in the past and allergy to penicillins. She will follow up with primary care physician for any ongoing symptoms understands need to return emergency department for any significant worsening despite treatment plan. - Data Points Laboratory Results: Laboratory Results 03/17/18 12:50 Medications Given: Discontinued Medications Sodium Chloride (Ns) 500 mls @ 1,000 mls/hr IV EDNOW ONE PRN Reason: Protocol Stop: 03/17/18 13:05 Last Admin: 03/17/18 13:05 Dose: 500 mls Ketorolac Tromethamine (Toradol) 15 mg IVP EDNOW ONE Stop: 03/17/18 13:15 Last Admin: 03/17/18 13:23 Dose: 15 mg Point of Care Test Results: CBC CBC Collection Date 03/17/18 CBC Collection Time 12:50 WBC 11.5 RBC 4.88 HGB 15.5 HCT 45.4 PLT 291 Neut # 9.7 Neut 83.9 LYMPH # 1.6 LYMPH 14.0 Other WBC # 0.2 MCV 93.0 Chemistry 03/17/18 12:57 POC Sodium 142 mEq/L mEq/L (135-145) POC Potassium 3.8 mEq/L mEq/L (3.3-5.0) POC Chloride 107.0 mEq/L mEq/L (97-110) POC Total CO2 22 mEq/L mEq/L (22-31) POC BUN 17 mg/dL mg/dL (7-23) POC Creatinine 0.8 mg/dL mg/dL (0.6-1.0) POC Glucose 101 mg/dL H mg/dL (70-100) POC Calcium 10.1 mg/dL mg/dL (8.5-10.4) Urine Dip Collection Date 03/17/18 Collection Time 12:25 Specific [place] (1.002-1.030) 1.005 PH (5.0-7.5) 5.5 Leukocytes (Negative) Negative Nitrites (Negative) Negative Protein (Negative) Negative Glucose (Negative) Negative Ketones (Negative) Negative Urobilnogen (0.2-1.0 EU) 0.2 Bilirubin (Negative) Negative Blood (Negative) Trace Departure - Departure Disposition: Home, Routine, Self-Care Clinical Impression: Acute diverticulitis Condition: Good Instructions: Diverticulitis (ED), Diverticulitis Diet (ED) Additional Instructions: Diagnosis: Diverticulitis Plan: Light/ Soft diet until you feel improved. Moxifloxacin antibiotic Ibuprofen or Aleve [id number] dose at 7:30 p.m. Tonight Tylenol in addition if needed 650 mg per 4-6 hours not to exceed 3000 mg in 24 hr Follow up primary care physician for any ongoing symptoms Return emergency department for any significant worsening despite the treatment plan Referrals: JUDITH CASEY [Primary Care Provider] - As per Instructions Prescriptions: Moxifloxacin [Avelox 400 mg (*)] 400 mg PO DAILY #10 tab
[2018-03-17] MEDS ORDERED: KETOROLAC 15 MG/1 ML SDV IVP ONE (13:14)
[2018-03-17 14:02] LABS: PLATELET COUNT 310 10^3/uL (150-400)
[2018-03-17 15:23] VITALS: BP 137/67
== END 2018-03-17 13:58 | disposition home or self-care (01) ==
LOC: CED 12:06
DX: K57.92 Diverticulitis of intestine, part unspecified, without perforation or abscess without bleeding (principal); E03.9 Hypothyroidism, unspecified; E86.9 Volume depletion, unspecified
CPT/HCPCS: 96361; 96374; 99284; J1885; 80048-ER

== ENCOUNTER 2018-06-07 10:04 | Emergency (ER) | payer OTHER ==
[2018-06-07] MEDS ORDERED: ASPIRIN 81 MG CHEWABLE TAB ONE (10:18)
[2018-06-07] MEDS ORDERED: NS 500 ML IV ONE ×2 (10:22→10:37)
[2018-06-07] MEDS ORDERED: ASPIRIN 81 MG CHEWABLE TAB PO ONE (10:22)
--- NOTE | 2018-06-07 10:30 | EDPHY ---
H & P Stated Complaint: L chest pain, rapid HR, dizziness since 0200 today Time Seen by Provider: 06/07/18 10:10 HPI/ROS: CHIEF COMPLAINT: Chest pain, palpitations HISTORY OF PRESENT ILLNESS: The patient is a 78-year-old healthy female who comes to the emergency depart with her complaining of palpitations that woke up from sleep around 2:00 a.m. And that have now developed into chest pain. She states that she felt like her heart was racing in the middle the night. She did not take her pulse at the time but did take it at 6:00 a.m. this morning and it was 130. Her who has atrial fibrillation states that it felt irregular to him. The patient herself does not have any history of cardiac or pulmonary disease. She denies recent illness or infection or fever. She denies shortness of breath. She states that initially she assumed it was heartburn which she has suffered with for a long time but that is seem to get worse. She describes it as a pinching feeling. It is not worsened by exertion however she states she does feel lightheaded when she stands up. No nausea vomiting. She did have diaphoresis briefly according to . Patient also reports having a mild headache which is somewhat similar to migraines she typically has but not as bad. She takes amitriptyline prophylactically. She is declining treatment for this currently. Severity: Moderate Modifying factors: None REVIEW OF SYSTEMS: Constitutional: denies: chills, fever, recent illness, recent injury EENTM: denies: blurred vision, double vision, nose congestion Respiratory: denies: cough, shortness of breath Cardiac: See HPI Gastrointestinal/Abdominal: denies: abdominal pain, diarrhea, nausea, vomiting, blood streaked stools Genitourinary: denies: dysuria, frequency, hematuria, pain Musculoskeletal: denies: joint pain, muscle pain Skin: denies: lesions, rash, jaundice, bruising Neurological: denies: headache, numbness, paresthesia, tingling, dizziness, weakness Hematologic/Lymphatic: denies: blood clots, easy bleeding, easy bruising Immunologic/allergic: denies: HIV/AIDS, transplant 10 systems reviewed and negative except as noted EXAM: GENERAL: Well-appearing, overweight and in no acute distress. HEAD: Atraumatic, normocephalic. EYES: Pupils equal round and reactive to light, extraocular movements intact, sclera anicteric, conjunctiva are normal. ENT: TMs normal, nares patent, oropharynx clear without exudates. Moist mucous membranes. NECK: Normal range of motion, supple without lymphadenopathy or JVD. LUNGS: Breath sounds clear to auscultation bilaterally and equal. No wheezes rales or rhonchi. HEART: Regular rate and rhythm without murmurs, rubs or gallops. ABDOMEN: Soft, nontender, normoactive bowel sounds. No guarding, no rebound. No masses appreciated. BACK: No CVA tenderness, no spinal tenderness, step-offs or deformities EXTREMITIES: Normal range of motion, no pitting or edema. No clubbing or cyanosis. NEUROLOGICAL: Cranial nerves II through XII grossly intact. Normal speech, normal gait. 5/5 strength, normal movement in all extremities, normal sensation , normal reflexes PSYCH: Normal mood, normal affect. SKIN: Warm, dry, normal turgor, no visible rashes or lesions. Source: Patient, Family - Personal History Current Tetanus/Diphtheria Vaccine: Unsure Current Tetanus Diphtheria and Acellular Pertussis (TDAP): Unsure - Medical/Surgical History Hx Asthma: No Hx Chronic Respiratory Disease: No Hx Diabetes: No Hx Cardiac Disease: No Hx Renal Disease: No Hx Cirrhosis: No Hx Alcoholism: No Hx HIV/AIDS: No Hx Splenectomy or Spleen Trauma: No Other PMH: hypothyroid, migraines, ortho surg, hysterectomy - Family History Significant Family History: No pertinent family hx - Social History Smoking Status: Never smoked Alcohol Use: None Drug Use: None Constitutional: Initial Vital Signs Temperature (C) 36.4 C 06/07/18 10:05 Heart Rate 93 06/07/18 10:05 Respiratory Rate 16 06/07/18 10:05 Blood Pressure 139/57 H 06/07/18 10:05 O2 Sat (%) 97 06/07/18 10:05 O2 Delivery Mode Room Air Allergies/Adverse Reactions: Penicillins Allergy (Verified 06/07/18 10:16) Pt reports rash/hives Home Medications: Medication Instructions Recorded Levothyroxine [Synthroid 100 mcg 01/31/13 (*)] Nortriptyline HCl 03/17/18 Prilosec 06/07/18 Medical Decision Making - Diagnostics EKG Interpretation: An EKG obtained and was read and documented in trace view. Please see trace view for full reading and report. Sinus rhythm, no acute ischemic changes or arrhythmia Imaging Results: Imaging Impressions Chest X-Ray 06/07/18 10:23 Impression: Suspect airways disease with no superimposed acute abnormality identified. Imaging: Discussed imaging studies w/ standpipe tender Radiologist ED Course/Re-evaluation: 11:00 a.m. Patient's x-ray and lab work is all reassuring. EKG is reassuring. The patient states that she is feeling much better. She declines further medication. Her headache is also improved. I recommended we continue to watch her and keep her on the monitor because of her symptoms sound consistent with an arrhythmia there early this morning. Will also repeat the troponin. 1:00 p.m. the patient continues to do well. Her repeat troponin is negative. No further arrhythmia is seen other than occasional PACs. I will have cardiology office follow-up with her for stress testing and possible Holter monitoring. She states she had a negative stress test 1 year ago. She will also follow up with her primary Dr. Casey. Discussed indications for returning. She and her feel comfortable with this plan. Differential Diagnosis: Partial list of the Differential diagnosis considered include but were not limited to; acute coronary disease, arrhythmia, anxiety, heartburn, migraine and although unlikely based on the history and physical exam, I also considered dissection, PE, pneumonia, pneumothorax. I discussed these differential diagnoses and the plan with the patient as well as the usual and expected course. The patient understands that the diagnosis is provisional and that in medicine we are not always correct and that further workup is often warranted. Usual and customary warnings were given. All of the patient's questions were answered. The patient was instructed to return to the emergency department should the symptoms at all worsen or return, otherwise to followup with the physician as we discussed. - Data Points Laboratory Results: 06/07/18 06/07/18 06/07/18 12:38 10:27 10:27 POC Sodium 142 mEq/L mEq/L (135-145) POC Potassium 3.9 mEq/L mEq/L (3.3-5.0) POC Chloride 103.0 mEq/L mEq/L (97-110) POC Total CO2 24 mEq/L mEq/L (22-31) POC BUN 20 mg/dL mg/dL (7-23) POC Creatinine 1.1 mg/dL H mg/dL (0.6-1.0) POC Glucose 103 mg/dL H mg/dL (70-100) POC Calcium 10.1 mg/dL mg/dL (8.5-10.4) POC Total Bilirubin 0.9 mg/dL mg/dL (0.1-1.4) POC AST 28 IU/L IU/L (14-46) POC ALT 28 IU/L IU/L (9-52) POC Alk Phosphatase 86 IU/L IU/L (38-126) POC Troponin I 0.00 ng/mL ng/mL 0.00 ng/mL ng/mL (0.00-0.08) (0.00-0.08) POC Total Protein 7.9 g/dL g/dL (6.3-8.2) POC Albumin 3.9 g/dL g/dL (3.5-5.0) Medications Given: Discontinued Medications Aspirin (Aspirin) 324 mg PO EDNOW ONE Stop: 06/07/18 10:23 Last Admin: 06/07/18 10:28 Dose: 324 mg Sodium Chloride (Ns) 500 mls @ 0 mls/hr IV EDNOW ONE; Wide Open PRN Reason: Protocol Stop: 06/07/18 10:23 Last Admin: 06/07/18 10:38 Dose: Not Given Sodium Chloride (Ns) 500 mls @ 0 mls/hr IV ONCE ONE PRN Reason: Wide Open Stop: 06/07/18 10:38 Last Admin: 06/07/18 10:38 Dose: 500 mls Potassium Chloride (Potassium Cl 10 Meq (Premix)) 100 mls @ 100 mls/hr IV ONCE ONE Stop: 06/07/18 11:58 Last Admin: 06/07/18 11:01 Dose: Not Given Potassium Chloride (Potassium Chloride Oral Liquid) 20 meq PO EDNOW ONE Stop: 06/07/18 10:59 Last Admin: 06/07/18 11:01 Dose: Not Given Point of Care Test Results: CBC CBC Collection Date 06/07/18 CBC Collection Time 10:20 WBC 6.45 RBC 5.21 HGB 16.2 HCT 47.7 PLT 265 Neut # 3.98 Neut 61.6 LYMPH # 1.7 LYMPH 26.4 MCV 91.6 Chemistry 06/07/18 06/07/1819 12:38 10:27 10:27 POC Sodium 142 mEq/L mEq/L (135-145) POC Potassium 3.9 mEq/L mEq/L (3.3-5.0) POC Chloride 103.0 mEq/L mEq/L (97-110) POC Total CO2 24 mEq/L mEq/L (22-31) POC BUN 20 mg/dL mg/dL (7-23) POC Creatinine 1.1 mg/dL H mg/dL (0.6-1.0) POC Glucose 103 mg/dL H mg/dL (70-100) POC Calcium 10.1 mg/dL mg/dL (8.5-10.4) POC Total Bilirubin 0.9 mg/dL mg/dL (0.1-1.4) POC AST 28 IU/L IU/L (14-46) POC ALT 28 IU/L IU/L (9-52) POC Alk Phosphatase 86 IU/L IU/L (38-126) POC Troponin I 0.00 ng/mL ng/mL 0.00 ng/mL ng/mL (0.00-0.08) (0.00-0.08) POC Total Protein 7.9 g/dL g/dL (6.3-8.2) POC Albumin 3.9 g/dL g/dL (3.5-5.0) D-Dimer D-Dimer Collection Date 06/07/18 D-Dimer Collection Time 10:20 D-Dimer (ng/ml) < 100 Departure - Departure Disposition: Home, Routine, Self-Care Clinical Impression: Palpitations Chest pain Qualifiers: Chest pain type: unspecified Qualified Code(s): R07.9 - Chest pain, unspecified Condition: Fair Instructions: Chest Pain (ED), Heart Palpitations (ED) Referrals: JUDITH CASEY [Primary Care Provider] - 2-3 days, call for appt. Delmer Rosa MD [Medical Doctor] - As per Instructions
--- NOTE | 2018-06-07 10:31 | CPEKG ---
Test Reason : OPEN Blood Pressure : / mmHG Vent. Rate : 088 BPM Atrial Rate : 088 BPM P-R Int : 186 ms QRS Dur : 090 ms QT Int : 374 ms P-R-T Axes : 029 -55 030 degrees QTc Int : 453 ms Sinus rhythm Inferior infarct, old Probable anteroseptal infarct, old Confirmed by Claus Fulton ([id number]) on 06/07/2018 10:31:31 AM Referred By: Claus Fulton Confirmed By:Claus Fulton
[2018-06-07] MEDS ORDERED: POTASSIUM CL 20 MEQ/15 ML UDCUP PO ONE (10:58)
[2018-06-07] MEDS ORDERED: POTASSIUM Cl (KCl) 100 ML IV ONE (10:59)
[2018-06-07 12:57] VITALS: BP 113/73
== END 2018-06-07 12:58 | disposition home or self-care (01) ==
LOC: CED 10:04
DX: R00.2 Palpitations (principal); R07.9 Chest pain, unspecified; E03.9 Hypothyroidism, unspecified
CPT/HCPCS: 71046-PO; 80053-ER; 84484-ER; 85025-QW-ER; 85379-QW-ER; 99285-ER